=== PATIENT | female | born 1960 | race African-American/Black ===

== ENCOUNTER 2017-09-28 06:28 | Emergency (ER) | payer MEDICAID, OTHER ==
[~2017-09-28] VITALS: Ht 170.2 cm; Wt 85.3 kg
[2017-09-28 06:42] VITALS: BP 136/80
== END 2017-09-28 07:45 | disposition home or self-care (01) ==
LOC: ER 06:28
DX: K08.89 Other specified disorders of teeth and supporting structures (principal); J02.9 Acute pharyngitis, unspecified; I10 Essential (primary) hypertension; Z88.0 Allergy status to penicillin; Z88.2 Allergy status to sulfonamides

== ENCOUNTER 2023-04-29 02:01 | Emergency (ER) | payer SELFPAY ==
[~2023-04-29] VITALS: Ht 170.2 cm; Wt 81.0 kg
[2023-04-29 02:01] VITALS: BP 137/76; RESP 16; O2SAT 97
[2023-04-29 02:16] VITALS: PULSE 101
== END 2023-04-29 02:25 | disposition left against medical advice (07) ==
LOC: ER 02:01
DX: R53.1 Weakness (principal); Z98.890 Other specified postprocedural states; Z53.21 Procedure and treatment not carried out due to patient leaving prior to being seen by health care provider
CPT/HCPCS: 93005